=== PATIENT | male | born 1985 | race Caucasian/White ===

== ENCOUNTER 2020-04-28 13:14 | Emergency (ER) | payer SELFPAY ==
--- NOTE | 2020-04-28 13:20 | ER Document Report ---
ED General - General Chief Complaint: Possible Overdose Stated Complaint: OVERDOSE Time Seen by Provider: 04/28/20 13:17 Notes: 34-year-old male presents with overdose. [place] after snorting what he thought was kratom. Respiratory rate 4, agonal dusky and [place]. 1 mg Narcan given with return of normal respirations and improvement in mental status. Diaphoretic. Does not complain of any pain. Not drink. 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 No injection drug no fever no other symptoms. No SI no HI. - Related Data Allergies/Adverse Reactions: No Known Allergies Allergy (Verified 04/28/20 13:40) Past Medical History - General Information source: Patient - Social History Smoking Status: Current Every Day Smoker Smoking Education Provided: Yes - The patient ED visit today was directly related to their abuse of tobacco. Family History: None Review of Systems - Review of Systems Notes: REVIEW OF SYSTEMS GEN: Denies fever, chills, weight loss ENT: Denies sore throat, nasal discharge, ear pain EYES: Denies blurry vision, eye pain, discharge CV: Denies chest pain, palpitations, edema RESP: Denies cough, shortness of breath, wheezing GI: Denies abdominal pain, nausea, vomiting, diarrhea MSK: Denies joint pain/swelling, edema, SKIN: Denies rash, skin lesions LYMPH: Denies swollen glands/lymph nodes NEURO: Denies headache, focal weakness or numbness, dizziness PSYCH: History of drug use PHYSICAL EXAMINATION General: Pale diaphoretic Head: Atraumatic, normocephalic ENT: Mouth normal, oropharynx moist, no exudates or tonsillar enlargement Eyes: Conjunctiva normal, pupils equal, lids normal Neck: No JVD, supple, no guarding CVS: Normal rate, regular rhythm, no murmurs Resp: No resp distress, equal and normal breath sounds bilaterally GI: Nondistended, soft, no tenderness to palpation, no rebound or guarding Ext: No deformities, no edema, normal range of motion in upper and lower ext Back: No CVA or midline TTP Skin: No rash, warm Lymphatic: No lymphadeopathy noted Neuro: Awake, alert. Face symmetric. GCS 15. Physical Exam - Vital signs Vitals: Resp Pulse Ox 11 L 98 04/28/20 13:21 04/28/20 13:21 Course - Re-evaluation Re-evalutation: 04/28/20 13:18 Opioid overdose unintentional either kratom heroin or other opioidresponded to Narcan Now nearnormal mental status. Will check vitals and observe carefully for a 1 hour 04/28/20 18:55 Observed for about 2 hours no evidence of respiratory depression or ongoing depression. Stable for discharge. Charged with Narcan. I have discussed with the patient there likely diagnosis, aftercare plan, follow-up plans and my usual and customary return precautions. They verbalized understanding of this. - Vital Signs Vital signs: Temp Pulse Resp BP Pulse Ox 97.6 F 10 L 111/87 H 100 04/28/20 13:27 04/28/20 15:01 04/28/20 15:01 04/28/20 15:01 Discharge - Discharge Clinical Impression: Opioid overdose Qualifiers: Encounter type: initial encounter Injury intent: accidental or unintentional Qualified Code(s): T40.2X1A - Poisoning by other opioids, accidental (unintentional), initial encounter Condition: Good Disposition: HOME, SELF-CARE Instructions: Overdose ([facility]) Prescriptions: Naloxone HCl [Narcan] 4 mg NS ONCEP PRN #1 spray PRN Reason:
[2020-04-28] MEDS ORDERED: ONDANSETRON HCL INJ/PF 4 MG/2 ML SDV IV ONE (14:18)
[2020-04-28 15:36] VITALS: BP 111/87
== END 2020-04-28 15:50 | disposition home or self-care (01) ==
LOC: ER 13:14
DX: T40.2X1A Poisoning by other opioids, accidental (unintentional), initial encounter (principal); R61 Generalized hyperhidrosis; Y92.481 Parking lot as the place of occurrence of the external cause; F17.200 Nicotine dependence, unspecified, uncomplicated
CPT/HCPCS: 99284; 96374; 82962; J2405